=== PATIENT | female | born 1995 | race Caucasian/White ===

== ENCOUNTER 2017-11-22 18:22 | Emergency (ER) | payer BC ==
--- NOTE | 2017-11-22 18:36 | EDPHY ---
H & P Time Seen by Provider: 11/22/17 18:30 HPI/ROS: CHIEF COMPLAINT: Left 4th digit injury HISTORY OF PRESENT ILLNESS: 21-year-old female was walking her dog with lesion on when the dog ran after score all and her leash abruptly impacted her left 4th digit distal phalanx at the DIP joint. She is complaining of pain to the D IP and the distal phalanx. Occurred shortly prior to arrival. Pain reproducible with flexion extension. PHYSICAL EXAM (Prior to examination, patient consented to physical exam, hands were washed and my usual and customary physical exam procedures followed) 1) GENERAL: Well-developed, well-nourished, alert and oriented. Appears to be in no acute distress. 2) HEAD: Normocephalic 3) HEENT: sclera anicteric 4) LUNGS: Breathing comfortably. 5) SKIN: Intact. No signs of infection. The patient has gel type nail pitcairn islander in place partially covering nail bed. I am able to visualize a few areas without nail Senegalese coverage and there are no signs of subungual hematoma. 6) MUSCULOSKELETAL: Tender to palpation left 4th digit at the D IP joint. No visible or palpable abnormality. No visible signs of trauma. 7) NEUROLOGIC: Two-point discrimination intact. Smoking Status: Never smoked Constitutional: Initial Vital Signs Temperature (C) 37 C 11/22/17 18:24 Heart Rate 80 11/22/17 18:24 Respiratory Rate 20 11/22/17 18:24 Blood Pressure 115/84 H 11/22/17 18:24 O2 Sat (%) 98 11/22/17 18:24 O2 Delivery Mode Room Air Allergies/Adverse Reactions: No Known Allergies Allergy (Unverified 11/22/17 18:24) Home Medications: Medication Instructions Recorded Control 11/22/17 MDM/Departure - MDM Imaging Results: Xray of the left hand interpreted by myself: no definitive acute osseous abnormality Imaging: I viewed and interpreted images myself Procedures: Procedure: Splint An Aluminum finger cage splint was applied by ER breeder service technician. After application of the splint I returned and re-examined the patient. The splint was adequately immobilizing the joint and distal to the splint the patient's circulation and sensation were intact. Patient shows no signs of compartment syndrome. Was given orthopedic precautions. ED Course/Re-evaluation: The patient attempted to remove her nail pitc[place] islander however because it is a gel type nail pitc[place]n islander, and this type of nail Senegalese cannot be removed by traditional nail Senegalese remover in the ER. She has been informed the subungual hematoma is not ruled out. However, on the portions of the nail that are not fully covered by nail Senegalese I do not visualize subungual hematoma. X-ray was obtained which showed no definitive acute osseous abnormality. I am unable to adequately assess flexor extensor function of the DIP joint secondary to pain. She has been informed that non osseous injury is not ruled out. There is no evidence of open injury at this time. The area has been splinted and I recommended follow up with hand surgeon as she is left hand dominant especially. She is agreeable with this. Given this referral information. Care of patient under supervision of secondary supervising physician Dr Morgan . - Depart Disposition: Home, Routine, Self-Care Clinical Impression: Injury of left ring finger Qualifiers: Encounter type: initial encounter Qualified Code(s): S69.92XA - Unspecified injury of left wrist, hand and finger(s), initial encounter Condition: Good Instructions: Finger Sprain (ED) Additional Instructions: Return to the ER immediately if you experience discoloration, have worsening pain, numbness, tingling, or any other symptoms that concern you. If you received x-rays in the emergency department today, be advised, that ligamentous , tendon, muscular, and other non-bony injury cannot be fully ruled out. Try to keep your affected extremity elevated above the level of your chest, and keep cold packs on the affected area, for the next 48 hours. Referrals: Yaniv De La Cruz MD [Medical Doctor] - 2-3 days, call for appt. (Dr. Yaniv De La Cruz is a hand surgeon)
[2017-11-22 19:16] VITALS: BP 112/60; PULSE 78; RESP 14; TEMP 97.5; O2SAT 97
== END 2017-11-22 19:16 | disposition home or self-care (01) ==
DX: S69.92XA Unspecified injury of left wrist, hand and finger(s), initial encounter (principal); W22.8XXA Striking against or struck by other objects, initial encounter; Y99.8 Other external cause status; Y93.K1 Activity, walking an animal
CPT/HCPCS: L3925

== ENCOUNTER 2017-12-16 22:34 | Emergency (ER) | payer BC ==
--- NOTE | 2017-12-16 23:26 | EDPHY ---
H & P Stated Complaint: "I THINK I HAVE A BLOOD CLOT" L CALF, PRP SX L KNEE MON Time Seen by Provider: 12/16/17 23:22 HPI/ROS: HPI: This is a 22-year-old female who presents with Chief Complaint: "I THINK I HAVE A BLOOD CLOT" L CALF, PRP SX L KNEE MON Location: left calf Quality: Concern for blood clot Duration: 30 min prior to arrival Signs and Symptoms: No bleeding, no radiation, no numbness, no weakness, no tingling, no incontinence, no decreased range of motion, no swelling, + pain, no fever, + skin color changes Timing: Acute, resolved Severity: Mild Context: Patient reports that she had platelet rich plasma therapy on Thursday in her left knee. She has been basically sedentary for the last 2 days. She takes oral control pills. She reports that this evening she noted of strange superficial venous like structure in her left calf with accompanied pain. She reports that it has since resolved. Denies any calf pain or cramping. Denies skin color changes/shortness of breath/chest pain. Nonsmoker. No recent long distance travel. LMP 28 days ago. Modifying Factors: None Comment: ROS: see HPI Constitutional: No fever, no chills, no weight loss Eyes: No blurred vision Respiratory: No shortness of breath, no cough Cardiovascular: No chest pain Gastrointestinal: No nausea, no vomiting no diarrhea Genitourinary: No dysuria Extremities: No myalgias Neurologic: No weakness, no numbness Skin: No rashes Hematologic: No bruising, no bleeding MEDICAL/SURGICAL/SOCIAL HISTORY: Medical history: Generally healthy. Does not take any regular medications. Surgical history: Denies Social history: Student. CONSTITUTIONAL: Slightly anxious extremely well-appearing young adult white female, awake and alert, no obvious distress HEENT: Atraumatic and normocephalic. NECK: supple, no midline tenderness, flexion 45 degrees, extension 45 degrees, right and left lateral flexion 45 degrees. No meningismus. Cardiovascular: Normal S1/S2, regular rate, regular rhythm, without murmur rub or gallop. PULMONARY/CHEST: Symmetrical and nontender. no crepitus. Clear to auscultation bilaterally. Good air movement. No accessory muscle usage. ABDOMEN: Soft, nondistended, nontender, no ecchymosis. PELVIC: no pain with rocking; bilateral hips flexion 125 degrees, extension 30 degrees, with no pain internal rotation and no pain external rotation. BACK: No midline tenderness, no paraspinous spasm, deep tendon reflexes 2/2, no pain with straight leg raise, No foot drop. Achilles reflexes are equal bilaterally. Able to walk on heels and toes without difficulty. EXTREMITIES: 2/2 pulses, strength 5/5, left KNEE: no effusion, medial and lateral joint line tenderness, full extension to 180, flexion to 120. No pain with varus and valgus exam. No pain with anterior drawer or posterior drawer test. DIP/PIP/MCP flexion/extension intact with good light touch sensation. no deformities, no clubbing, no cyanosis or edema. No varicose veins. No palpable cords. NEUROLOGICAL: no focal neuro deficits. GCS 15. Light touch sensation intact. SKIN: Warm and dry, no erythema. no rash. Good capillary refill. Source: Patient, Family (Father) Exam Limitations: No limitations - Personal History LMP (Females 10-55): Over 28 Days Ago Current Tetanus Diphtheria and Acellular Pertussis (TDAP): Yes Tetanus Vaccine Date: 2012 - Medical/Surgical History Hx Asthma: No Hx Chronic Respiratory Disease: No Hx Diabetes: No Hx Cardiac Disease: No Hx Renal Disease: No Hx Cirrhosis: No Hx Alcoholism: No Hx HIV/AIDS: No Hx Splenectomy or Spleen Trauma: No Other PMH: PRP SX 12/14/2017 - Social History Smoking Status: Never smoked Constitutional: Initial Vital Signs Temperature (C) 36.6 C 12/16/17 22:39 Heart Rate 87 12/16/17 22:39 Respiratory Rate 16 12/16/17 22:39 Blood Pressure 140/95 H 12/16/17 22:39 O2 Sat (%) 96 12/16/17 22:39 O2 Delivery Mode Room Air Allergies/Adverse Reactions: No Known Allergies Allergy (Verified 12/16/17 22:38) Home Medications: Medication Instructions Recorded Control 11/22/17 Medical Decision Making - Diagnostics Imaging Results: Imaging Impressions Extremity Venous Study 12/16/17 23:26 Impression: No deep venous thrombosis left leg. ED Course/Re-evaluation: Vital signs reviewed upon arrival in stable. Left lower extremity ultrasound ordered to evaluate for DVT. No signs of neurovascular compromise/tenting of skin/compartment syndrome/ extremities and joints examined above and below area of concern and are neurovascularly intact/cellulitis/peripheral vascular disease/thrombophlebitis/ septic arthritis. 2356: Called by radiologist who advised that radiologist states no superficial or deep venous thrombosis. Reassurance provided to patient. This patient was seen under the supervision of my secondary supervising physician. I evaluated care for this patient independently. Differential Diagnosis: Leg swelling including but not limited to hypoalbuminemia, congestive heart failure, cor pulmonale, chronic venous stasis and DVT. Departure - Departure Disposition: Home, Routine, Self-Care Clinical Impression: Status post left knee surgery, Vein symptom Condition: Good Instructions: Leg Edema (ED) Additional Instructions: Ultrasound today does not show any signs of superficial or deep blood clots. Return to the ER immediately if you experience new or worsening pain, discoloration, numbness, tingling, or any other symptoms that concern you. Referrals: PCP Not In,Dictionary [Medical Doctor] - As per Instructions
[2017-12-17 00:08] VITALS: BP 103/75
== END 2017-12-17 00:10 | disposition home or self-care (01) ==
DX: M79.662 Pain in left lower leg (principal); Z98.890 Other specified postprocedural states

== ENCOUNTER 2018-06-21 19:15 | Observation (INO) | payer BC ==
[2018-06-21] MEDS ORDERED: NS 1,000 ML IV ONE (19:54)
[2018-06-21] MEDS ORDERED: KETOROLAC 30 MG/1 ML SDV IVP ONE (19:54)
--- NOTE | 2018-06-21 19:56 | EDPHY ---
HPI/HX/ROS/PE/MDM - Data Points Imaging: Discussed imaging studies w/ train caller Radiologist Narrative: CHIEF COMPLAINT: "I'm in so much pain" HPI: The patient is a 22 y/o female arriving with her mother complaining of severe lower abdominal pain that began at 05:00 this morning while flying here from [place]. Upon landing, she went to [facility] ED and was there for several hours. She says, "they thought colitis and they tested for appendicitis and ovarian cyst" with abdominal CT, abdominal US, UA, and lab work that were all normal per discharge paperwork she brought with her. She received morphine with minimal improvement and then Toradol with short term improvement. She was discharged with Zofran and loperamide for symptoms. Her pain "came right back" within two hours of returning home. She says it "feels like someone constantly stabbing you but it never dips, it never leaves, and then it spikes." Her pain is worst in her lower abdomen, but hurts throughout her abdomen. She also had mild cold symptoms Thursday and Thursday and some diarrhea yesterday. She vomited a couple times earlier this morning. She notes she had the same pain once previously in [place] in February, 3 months ago, and it was associated with near constant vomiting that time. She was treated for food poisoning, though she does not believe that was the cause of her symptoms. She denies dysuria. Per [facility] records: CT abdomen impression: "The appendix appears normal where visualized. There is trace inflammation along and mild thickening of the posterior aspect of the cecum, which abuts the right ovary and could be reactive." Pelvic US impression: "Normal pelvic ultrasound." REVIEW OF SYSTEMS: A comprehensive 10 system review of systems is otherwise negative aside from elements mentioned in the history of present illness. PMH: Prior episode of abdominal pain. SOCIAL HISTORY: Mother at bedside. Lives in [place]. [employer] student. PHYSICAL EXAM: General:Patient is alert, tearful, rocking back and forth while sitting on bed. ENT:Eyes are normal to inspection. ENT inspection normal. Neck: Normal inspection. Full range of motion. Respiratory:No respiratory distress. Breath sounds normal bilaterally. Cardiovascular: Regular rate and rhythm. Strong peripheral pulses. Normal cap refill. Abdomen: Lower abdominal tenderness to palpation. There are no peritoneal signs. Back: Normal to inspection. No tenderness to palpation. Skin: Normal color. No rash. Warm and dry. Extremities: Normal appearance. Full range of motion. Neuro: Oriented x3. Normal motor function. Normal sensory function. (Davi Metz) ED Course: Dr. Sal saw the patient in the emergency department and plans to admit the patient for observation for possible appendicitis. I have ordered the patient a hospital bed. (Rebecca Wright) This is a normally healthy 22 y/o female who presents with a several hour history of severe lower abdominal pain and nausea. She was already evaluated for these symptoms at [facility] earlier today with abdominal CT, abdominal US, labs, and UA that were all negative. Toradol seemed to help her pain temporarily and she would like to try that again here. Due to a recent negative CT a few hours ago, I do not recommend repeating this test due to radiation exposure. Plan for IV, labs, repeat pelvic US, and symptomatic management. 15mg IV Toradol, 20mg PO Bentyl, and 1L IV NS ordered. WBC elevated at 15.31. Pelvic US is negative. 2130: Reassessed patient. She is currently sleeping. Reassessed patient and discussed work up thus far. They would like to consult with the surgeon before making decision on discharge due to concern for pain recurrence at home. Dr. Sal consulted. (Davi Metz) - Data Points Imaging Results: Imaging Impressions Pelvic/Renal Ultrasound 06/21/18 19:55 Impression: Normal exam. Findings were discussed with Davi Metz MD at 20:53, on 06/21/2018. Laboratory Results: Laboratory Results 06/21/18 20:15 06/21/18 20:15 06/21/18 06/21/18 06/21/18 20:15 20:15 20:15 WBC 15.31 10^3/uL H 10^3/uL (3.80-9.50) RBC 4.73 10^6/uL 10^6/uL (4.18-5.33) Hgb 14.0 g/dL g/dL (12.6-16.3) Hct 39.6 % % (38.0-47.0) MCV 83.7 fL fL (81.5-99.8) MCH 29.6 pg pg (27.9-34.1) MCHC 35.4 g/dL g/dL (32.4-36.7) RDW 12.4 % % (11.5-15.2) Plt Count 240 10^3/uL 10^3/uL (150-400) MPV 11.1 fL fL (8.7-11.7) Neut % (Auto) 78.0 % H % (39.3-74.2) Lymph % (Auto) 14.4 % L % (15.0-45.0) Sherman % (Auto) 7.1 % % (4.5-13.0) Eos % (Auto) 0.1 % L % (0.6-7.6) Baso % (Auto) 0.2 % L % (0.3-1.7) Nucleat RBC Rel Count 0.0 % % (0.0-0.2) Absolute Neuts (auto) 11.94 10^3/uL H 10^3/uL (1.70-6.50) Absolute Lymphs (auto) 2.20 10^3/uL 10^3/uL (1.00-3.00) Absolute Monos (auto) 1.09 10^3/uL H 10^3/uL (0.30-0.80) Absolute Eos (auto) 0.02 10^3/uL L 10^3/uL (0.03-0.40) Absolute Basos (auto) 0.03 10^3/uL 10^3/uL (0.02-0.10) Absolute Nucleated RBC 0.00 10^3/uL 10^3/uL (0-0.01) Immature Gran % 0.2 % % (0.0-1.1) Immature Gran # 0.03 10^3/uL 10^3/uL (0.00-0.10) Sodium 137 mEq/L mEq/L (135-145) Potassium 4.0 mEq/L mEq/L (3.3-5.0) Chloride 106 mEq/L mEq/L (97-110) Carbon Dioxide 21 mEq/l L mEq/l (22-31) Anion Gap 10 mEq/L mEq/L (6-14) BUN 7 mg/dL mg/dL (7-23) Creatinine 0.7 mg/dL mg/dL (0.6-1.0) Estimated GFR > 60 Glucose 107 mg/dL H mg/dL (70-100) Calcium 9.6 mg/dL mg/dL (8.5-10.4) Beta HCG, Qual NEGATIVE Medications Given: Dicyclomine HCl (Bentyl) 20 mg PO Q6 PRN PRN Reason: ABDOMINAL MODERATE PAIN Stop: 12/19/18 01:59 Last Admin: 06/22/18 02:39 Dose: 20 mg Lactated Ringer's (Lr) 1,000 mls @ 100 mls/hr IV CONT FELA Stop: 12/19/18 01:59 Last Admin: 06/22/18 02:38 Dose: 1,000 mls Discontinued Medications Dicyclomine HCl (Bentyl) 20 mg PO EDNOW ONE Stop: 06/21/18 20:32 Last Admin: 06/21/18 20:52 Dose: 20 mg Sodium Chloride (Ns) 1,000 mls @ 0 mls/hr IV EDNOW ONE; Wide Open PRN Reason: Protocol Stop: 06/21/18 19:55 Last Admin: 06/21/18 20:17 Dose: 1,000 mls Ketorolac Tromethamine (Toradol) 15 mg IVP EDNOW ONE Stop: 06/21/18 19:55 Last Admin: 06/21/18 20:16 Dose: 15 mg Ketorolac Tromethamine (Toradol) 30 mg IVP ONCE ONE Stop: 06/22/18 02:01 Last Admin: 06/22/18 02:38 Dose: 30 mg General Time Seen by Provider: 06/21/18 19:30 Initial Vital Signs: Initial Vital Signs Temperature (C) 37.1 C 06/21/18 19:20 Heart Rate 82 06/21/18 19:20 Respiratory Rate 17 06/21/18 19:20 Blood Pressure 132/82 H 06/21/18 19:20 O2 Sat (%) 98 06/21/18 19:20 O2 Delivery Mode Room Air Allergies/Adverse Reactions: No Known Allergies Allergy (Verified 06/24/18 07:02) Home Medications: Medication Instructions Recorded Ethinyl Estradiol/Drospirenone 1 each PO DAILY 11/22/17 [Loryna 3 mg-0.02 mg Tablet] Ibuprofen [Motrin (*)] 600 mg PO Q6H #30 tab 06/23/18 oxyCODONE/APAP 5/325 [Percocet 1 - 2 tab PO Q4 PRN #30 tab 06/23/18 5/325 (*)] Departure - Departure Disposition: Home, Routine, Self-Care Clinical Impression: Abdominal pain Qualifiers: Abdominal location: generalized Qualified Code(s): R10.84 - Generalized abdominal pain Condition: Good Report Scribed for: Davi Metz Report Scribed by: Vivian Moreira Date of Report: 06/21/18 Time of Report: 20:09 Physician Review and Approval Statement: Portions of this note were transcribed by an ED scribe. I personally performed the history, physical exam, and medical decision making; and confirm the accuracy of the information in the transcribed note.
[2018-06-21 20:28] LABS: PLATELET COUNT 240 10^3/uL (150-400)
[2018-06-21] MEDS ORDERED: DICYCLOMINE 10 MG CAP PO ONE (20:31)
[2018-06-22] MEDS ORDERED: HYDROmorphONE/DILAUDID 1 MG/ML INJ IVP PRN ×2 (02:00→20:06)
[2018-06-22] MEDS ORDERED: DICYCLOMINE 20 MG TAB PO PRN (02:00)
[2018-06-22] MEDS ORDERED: KETOROLAC 30 MG/1 ML SDV IVP ONE (02:00)
[2018-06-22] MEDS: LR 1,000 ML IV SCH ×2 (02:38→12:03)
[2018-06-22 04:46] LABS: PLATELET COUNT 194 10^3/uL (150-400)
[2018-06-22] MEDS: KETOROLAC 15 MG/1 ML SDV IVP PRN ×3 (09:02→22:57)
--- NOTE | 2018-06-22 10:28 | SOAPPROG ---
SOAP Progress Note Assessment/Plan: Assessment/Plan: 22 Y F admitted with persistent severe lower abdominal pain. URI over weekend, episode of diarrhea and vomiting. Seen [facility] before admit here. Seen and examined with Dr. aSl earlier this am. Per reports, CT at outside hospital without sign of appendicitis or other problem and pelvic US here was normal. Abdominal pain improved c bentyl last night. can filling and closing machine tender this am with persistent white count which is concerning. Continue observation, but may need exploratory surgery if pain persists. Continue NPO. No VTE ppx in case of need for OR. S: if still then no pain, +pain when moving around. bentyl helped, but mostly bc it let her sleep. O: sleeping but easily arousable and cooperative no wob abd soft, +hypogastric abdominal tenderness c some guarding 06/22/18 10:28 Objective: Vital Signs Temp Pulse Resp BP Pulse Ox 36.8 C 93 16 105/74 95 06/22/18 05:08 06/22/18 08:34 06/22/18 05:08 06/22/18 08:34 06/22/18 08:34 Laboratory Results 06/22/18 04:20 06/21/18 06/22/18 06/23/18 05:59 05:59 05:59 Intake Total 1400 Balance 1400 ICD10 Worksheet Patient Problems: Problems Problem Status Onset Abdominal pain Acute
--- NOTE | 2018-06-22 13:18 | ASMTCMCOM ---
CM Note CM Note Notes: Chart reviewed. 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 Currently obs status for possible exploratory lap surgery if pain persists. Likely no needs when medically cleared for discharge. Plan: Home no needs. Date Signed: 06/22/2018 01:17 PM Electronically Signed By:Samantha Santana RN
[2018-06-22] MEDS ORDERED: MIDAZOLAM 2 MG/2 ML VIAL IVP ONE ×2 (15:17→18:48)
--- NOTE | 2018-06-22 15:17 | PDANEPAE ---
ANE History of Present Illness exploratory laparoscopy ANE Past Medical History - Pulmonary History Hx Oxygen in Use at Home: No Hx Sleep Apnea: No Sleep Apnea Screening Result - Last Documented: Negative - Endocrine History Hx Diabetes: No - Chronic Pain History Chronic Pain: No ANE Review of Systems Review of systems is: negative Review of Systems: - Exercise capacity Exercise capacity: >=4 METS ANE Patient History - Allergies Allergies/Adverse Reactions: No Known Allergies Allergy (Verified 12/16/17 22:38) - Home Medications Home medications: home medication list seen and reviewed Home Medications: Ethinyl Estradiol/Drospirenone [Loryna 3 mg-0.02 mg Tablet] 1 each PO DAILY 09/10 [Last Taken 06/20/18] - NPO status NPO Status: no food or drink >8 hours - Anes Hx Anes Hx: no prior problems - Smoking Hx Smoking Status: Never smoked - Family Anes Hx Family Anes Hx: none ANE Labs/Vital Signs - Labs Result Diagrams: 06/22/18 04:20 06/21/18 20:15 - Vital Signs Vital Signs: reviewed preoperatively; see RN documention for details Blood Pressure: 99/62 Heart Rate: 112 Respiratory Rate: 16 O2 Sat (%): 97 Height: 165.1 cm Weight: 63.503 kg ANE Physical Exam - Airway Neck exam: FROM Mallampati Score: Class 2 Mouth exam: normal dental/mouth exam - Pulmonary Pulmonary: no respiratory distress - Cardiovascular Cardiovascular: regular rate and rhythym - ASA Status ASA Status: II, E ANE Anesthesia Plan Anesthesia Plan: general endotracheal anesthesia (RSI)
--- NOTE | 2018-06-22 15:42 | GCON ---
REFERRING PHYSICIAN: NIECY Garcia REASON FOR CONSULTATION: Abdominal pain. Dear Ria Price: Thank you very kindly for asking me to evaluate the patient in consultation for a chief complaint of abdominal pain. She is a pleasant 22-year-old female without significant past medical history, who developed a rather abrupt onset of abdominal symptoms while flying home from [place] on Thursday. She was vacationing at [employer] The travel was uneventful. She first noticed the onset of periumbilical and lower abdominal discomfort while in the airport. This was associated with nausea. She said it felt kind of like a hunger pain and ate a pop tart, but this made her feel really sick, and she threw up. She had of a small amount of stool that day, which was pebble like. There was no blood or hematochezia. Her pain escalated, and when she arrived back home, she was seen in the emergency room at the [facility]. It sounds like laboratories there revealed an elevated white count, and a CT scan was somewhat unremarkable for the cause of symptoms. She was sent home, but when the pain worsened, she was readmitted to [facility]. Her white count remains elevated at 15.3 yesterday and 14.1 today. The plan was for a possible laparoscopy to help with her diagnosis. Of note, she had a transabdominal pelvic ultrasound today, which was also normal. I am asked to assist with further evaluation and management. PAST MEDICAL HISTORY: Significant for a food-borne illness while traveling in [facility] last January. This was manifested by nausea, vomiting, and diarrhea that lasted 24 hours. Of note, she has also had a longstanding history of childhood constipation that was somewhat difficult to control. PAST SURGICAL HISTORY: None. SOCIAL HISTORY: The patient is a colette at . No tobacco. No alcohol. No substance abuse. MEDICATIONS: Occasional Advil. ALLERGIES: None. FAMILY HISTORY: Significant for a grandmother with some "bowel problems." Nobody with Crohn disease, celiac disease, ulcerative colitis or irritable bowel syndrome. REVIEW OF SYSTEMS: CONSTITUTIONAL: She has had subjective fever. No chills. No night sweats. No weight loss. HEENT: She did report a headache on Thursday, for which she took Advil. No other recent headache, and her headache is currently gone. No visual disturbances. No rhinorrhea. No epistaxis. No ear pain. No swallowing difficulties. PULMONARY: No cough or shortness of breath. CARDIOVASCULAR: No chest pain or palpitations. Denies syncope. GI: She has been nauseous with 1 episode of bilious vomiting and also food (threw up her pop tart). Her abdominal pain is generalized but seems to be more lower , periumbilical and right sided. GENITOURINARY: She denies dysuria, hematuria , or flank pain. GYNECOLOGIC: Denies dyspareunia, vaginal bleeding, vaginal discharge. She denies ever having an abnormal pelvic exam. RHEUMATOLOGIC: No joint pain. DERMATOLOGIC: No rash, jaundice or hives. ENDOCRINE: No heat or cold intolerance. PSYCHIATRIC: No depression, anxiety. No history of mental health illness. PHYSICAL EXAM: VITAL SIGNS: Blood pressure 102/69. Heart rate is 92. Temperature is 37.9, is the T-max. Oxygenation is 96% on room air. GENERAL: Comfortable-appearing female in no acute distress. She is initially in the wheelchair on the patio outside with her mom. We had wheeled her back into the room. She was able to ambulate from the wheelchair to the bed without difficulty or obvious pain. HEENT: Normocephalic, atraumatic. Oropharynx clear. Sclerae anicteric. NECK: Supple. No palatal petechiae. No jugular venous distention. No thyromegaly. No exudate or oral thrush. PULMONARY: Clear to auscultation bilaterally. CARDIOVASCULAR: Regular rate and rhythm without murmur, rub, or gallop. GI: The abdomen is tender to palpation in the right lower quadrant. No rebound. No guarding. Bowel sounds are hypoactive. There is no distention, no abdominal bruit, no organomegaly, no herniation. I do not appreciate palpably a mass in the abdomen. EXTREMITIES: No cyanosis, clubbing, edema, or palmar erythema. No joint deformity, swelling or warmth. DERMATOLOGIC: No jaundice or rash. NEURO: Alert to person, place, and time. Cranial nerves normal. Motor nonfocal. Gait is non-ataxic. DATABASE: Includes the following: Today, white blood count 14.1, hematocrit 36.5, platelets are 194. Sodium 137, potassium 4.0, chloride 106, bicarbonate 21, BUN 7, creatinine 0.7, glucose 107. Beta hCG negative. Calcium 9.6. IMAGING: Includes a transabdominal and pelvic ultrasound, which is normal. She has had a CT scan of the abdomen and pelvis performed at the [facility] emergency room, the results of which are dictated in the ER note and also in Ria Price's progress note, as appendix appears normal. There is trace inflammation and mild thickening along the posterior aspect of the cecum, which abuts the right ovary and could be reactive. Otherwise, it is reportedly normal. IMPRESSION: 1. Right lower quadrant abdominal pain. 2. CT scan with some trace inflammation and thickening along the posterior aspect of the cecum. 3. Nausea with 1 episode of vomiting. 4. Leukocytosis. 5. Low-grade fever. RECOMMENDATIONS: 1. I will discuss with Surgery the plan for laparoscopy. This may be the best test to evaluate her symptoms and make a diagnosis. While the appendix is visualized and radiographically normal, the finding of inflammation along the cecum is unclear. 2. This inflammatory cecal process could be infectious. I am not opposed to adding antibiotics empirically to her management and continue IV fluids, clear liquids, and observation. 3. If she does well and does not need an urgent laparoscopy, according to Surgery's input, then an upper endoscopy and colonoscopy to evaluate her vomiting, abdominal pain and cecal inflammation can be arranged. 4. Further recommendations to follow. Surgery will re-evaluate this evening. 5. If an observational strategy is chosen and she continues to have pain, elevated WBC and fever then repeat CT imaging should be done to help with decision making. /[id number]/MODL MTDD
[2018-06-22] MEDS ORDERED: LR 1,000 ML IV ONE (16:11)
[2018-06-22] MEDS ORDERED: HYDROmorphONE/DILAUDID 2 MG/ML INJ ONE (16:40)
[2018-06-22] MEDS ORDERED: ceFAZolin 2 GM/DEXTROSE 100 ML IV ONE (16:44)
--- NOTE | 2018-06-22 16:55 | PDGENHP ---
History & Physical Chief Complaint: RLQ PAIN History of Present Illness: 22 FEMALE WITH PERSISTENT RLQ TENDERNESS WITH ELEVATED WBC AND LOW GRADE FEVER. NO MAJOR DIARHEA OR EMESIS. 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 PARTICULARLY NO VAG DISCHARGE. CT AND US NONDIAGNOSTIC AT ANOTHER ER BUT FILMS NOT AVAILABLE. PAIN MUCH WORSE WITH MOVEMENT. LMP MARCH Pertinent Past, Social, Family History: PMH: WISDOM TEETH/ NO OTHER SURGERIES OR MED ISSUES. NKA. MEDS CONTROL IMPLANT. ROS - 10 PT REVIEW. FAM HX FACTOR V LEIDEN. SOC: NONSMOKER Relevant Physical Exam: GEN: AFEBRILE, HEALTHY. HEENT: NONICTERIC, NO ORAL LESIONS, NO NODES. NECK SUPPLE. CHEST CLEAR AND SYMMETRIC. COR RR. ABD SOFT , VERY TENDER RLQ WITH REBOUND AND GUARDING, + BS. EXTREM OK. BACK NONTENDER. NEURO PHYSIOLOGIC. PSYCH OK Cardiorespiratory Assessment: IMP: POSSIBLE APPE DESPITE NONDIAGNOSTIC CT. PLAN ADMIT FOR OBS/ GI CONSULT/ ? FOLLOWUP IMAGING
[2018-06-22] MEDS ORDERED: HYDROmorphONE/DILAUDID 2 MG/ML INJ IVP ONE (17:00)
--- NOTE | 2018-06-22 17:03 | SOAPPROG ---
URSZULA Progress Note Assessment/Plan: Assessment: STILL VERY TENDER/ WBC 14K/ TEMP 101.3 RISKS AND OPTIONS FULLY DISCUSSED INCLUDING OBS ON ABX SHE WISHES TO PROCEED WITH LAPAROSCOPY Plan:POSSIBLE LAP APPE 06/22/18 17:01 Objective: Vital Signs Temp Pulse Resp BP Pulse Ox 38.6 C H 112 H 16 99/62 L 97 06/22/18 16:19 06/22/18 16:21 06/22/18 16:21 06/22/18 16:21 06/22/18 16:21 Laboratory Results 06/22/18 04:20 06/21/18 06/22/18 06/23/18 05:59 05:59 05:59 Intake Total 1400 Balance 1400 ICD10 Worksheet Patient Problems: Problems Problem Status Onset Abdominal pain Acute
[2018-06-22] MEDS ORDERED: BUPIVACAINE 0.5% 30 ML SDV ONE (18:25)
[2018-06-22] MEDS ORDERED: ceFAZolin 1 GM/5 ML SYR ONE (18:26)
[2018-06-22] MEDS ORDERED: HEPARIN 1000 UNIT/1 ML MDV ONE (18:26)
[2018-06-22] MEDS ORDERED: PROPOFOL 200 MG/20 ML VIAL ONE (18:29)
[2018-06-22] MEDS ORDERED: fentaNYL 100 MCG/2 ML INJ ONE ×2 (18:29)
[2018-06-22] MEDS ORDERED: ROCURONIUM 50 MG/5 ML VIAL ONE (18:32)
[2018-06-22] MEDS ORDERED: LIDOCAINE 2% 5 ML SDV ONE (18:32)
[2018-06-22] MEDS ORDERED: ONDANSETRON 4 MG/2 ML VIAL ONE (18:33)
[2018-06-22] MEDS ORDERED: DEXAMETHASONE 4 MG/ML VIAL ONE (18:33)
[2018-06-22] MEDS ORDERED: MIDAZOLAM 2 MG/2 ML VIAL ONE (18:50)
--- NOTE | 2018-06-22 18:51 | POSTANESTH ---
Post Anesthetic Evaluation Cardiovascular Status: Normal, Stable Respiratory Status: Normal, Stable Level of Consciousness/Mental Status: Can Participate in Eval Pain Control: Adequate, Prn Tx Ordered Nausea/Vomiting Control: Adequate, Prn Tx Ordered Complications Possibly Related to Anesthesia: None Noted
[2018-06-22] MEDS ORDERED: SUCCINYLCHOLINE CHLORIDE 200 MG/10 ML SYR IVP ONE (19:01)
[2018-06-22] MEDS ORDERED: SUGAMMADEX SODIUM 200 MG/2 ML VIAL IVP ONE (19:37)
--- NOTE | 2018-06-22 20:05 | POSTOPPROG ---
Post Op Note Date of Operation: 06/22/18 Surgeon: Asher Sal Anesthesiologist: LYNN Anesthesia: GET(General Endotracheal) Pre-op Diagnosis: APPENDICITIS Post-op Diagnosis: SAME Indication: RETROCECAL,SUBACUTE APPENDICITIS Procedure: LAP APPE Findings: MARKEDLY SUBACUTELY INFLAMED CHRONIC APPENDICITIS Inf/Abcess present in the surg proc area at time of surgery?: Yes Depth: Organ Space EBL: Minimal Complications: 0 Specimen(s): APPENDIX
[2018-06-22] MEDS ORDERED: ONDANSETRON 4 MG/2 ML VIAL IVP PRN (20:06)
[2018-06-22] MEDS: D5W 1/2 NS W/ 20 KCl/L 1,000 ML IV SCH (21:31)
[2018-06-23] MEDS: cefOXitin SODIUM 2 GM in NS 100 ML IV SCH ×3 (00:07→14:01)
[2018-06-23] MEDS: OXYCODONE/APAP 5/325 TAB PO PRN ×2 (06:25→11:56)
[2018-06-23] MEDS: D5W 1/2 NS W/ 20 KCl/L 1,000 ML IV SCH (06:28)
[2018-06-23] MEDS ORDERED: ETHINYL ESTRADIOL PO SCH (09:00)
[2018-06-23] MEDS ORDERED: DROSPIRENONE PO SCH (09:00)
[2018-06-23] MEDS ORDERED: ENOXAPARIN 40 MG/0.4 ML SYR SC SCH (09:00)
--- NOTE | 2018-06-23 10:14 | SOAPPROG ---
SOAP Progress Note Assessment/Plan: Assessment/Plan: 22 Y F admitted with persistent severe lower abdominal pain. URI over weekend, episode of diarrhea and vomiting. Seen [facility] before admit here. now s/p ex-laparoscopy with appendectomy for subacute/ chronic retrocecal appendicitis. POD#1 Overall doing well. Advance diet. Transition to PP pain pills. Continue IV abx while in house. Possibly home later today vs in am pending course. S: has pain--mostly RLQ and not incisional. passing gas. no nausea. no sweats or chills. O: sleeping but easily arousable and cooperative no wob rrr abd soft, inc cdi, +BS 06/23/18 10:11 Objective: Vital Signs Temp Pulse Resp BP Pulse Ox 36.7 C 67 16 93/54 L 97 06/23/18 08:02 06/23/18 08:02 06/23/18 08:02 06/23/18 08:02 06/23/18 08:02 Laboratory Results 06/22/18 04:20 06/22/18 06/23/18 06/24/18 05:59 05:59 05:59 Intake Total 1400 1900 675 Output Total 5 Balance 1400 1895 675 ICD10 Worksheet Patient Problems: Problems Problem Status Onset Abdominal pain Acute
[2018-06-23] MEDS: KETOROLAC 15 MG/1 ML SDV IVP PRN (11:57)
[2018-06-23 13:27] VITALS: BP 104/69
--- NOTE | 2018-06-23 13:32 | ASMTLACE ---
JESS Length of stay for Answers: 1 day current admission # of Emergency department Answers: 3-4 visits in the last 6 months Score: 4 Date Signed: 06/23/2018 01:31 PM Electronically Signed By:Samantha Santana RN
--- NOTE | 2018-06-23 13:35 | ASMTCMCOM ---
CM Note CM Note Notes: Medically cleared per surgery for discharge to home. No identified needs. CM available should needs arise. Plan: Dc to home no needs, Date Signed: 06/23/2018 01:34 PM Electronically Signed By:Samantha Santana RN
--- NOTE | 2018-06-29 06:33 | GOP ---
DATE OF OPERATION: 06/22/2018 SURGEON: Asher Sal MD PREOPERATIVE DIAGNOSIS: Acute appendicitis. POSTOPERATIVE DIAGNOSIS: Chronic retrocecal appendicitis. PROCEDURE PERFORMED: Appendectomy. FINDINGS: The patient was found to have a markedly thickened appendix which was stuck in a retroceca l retroperitoneal position requiring a significant tedious dissection. ESTIMATED BLOOD LOSS: Negligible. She was taken to the recovery room in good condition. DESCRIPTION OF PROCEDURE: Patient was brought to the operating room where she received satisfactory general endotracheal anesthesia. She was placed in the supine position, prepped and draped in the [facility] sterile fashion. A periumbilical incision was made. A Veress needle was inserted. Pneumoperitoneum was established. Trocar was introduced. Laparoscope introduced. Good visualization was obtained. Two other trocars were placed in the lower abdomen under direct vision. The cecum was rotated medially. The appendix was seen to be markedly fused to the cecum and inflamed in the retrocecal retroperitoneal position. The peritoneal reflection was divided with the Harmonic Scalpel. The appendix was freed up as much as possible. The base was then skeletonized and divided with a stapler, and then the mesoappendix an d the appendix were mobilized in a retrograde fashion with the Harmonic Scalpel with care to avoid in jury to the cecum. The appendix was eventually completely freed and placed in a specimen bag and ext racted through the upper midline port site. Wound was irrigated. Hemostasis was assured. There was no contamination. Trocars removed under direct vision. Trocar sites were closed with 0 Vicryl for the fascia, 4-0 Monocryl subcuticular stitch for the skin, and all layers infiltrated with 0.5% Marcaine. /[id number]/MODL
--- NOTE | 2018-06-30 09:50 | GDS ---
DISCHARGE DIAGNOSIS: Chronic retrocecal appendicitis. PROCEDURES: Laparoscopic appendectomy. INTRAOPERATIVE FINDINGS: Patient was found to have a markedly-thickened appendix which was stuck in a retrocecal retroperitoneal position requiring a significant tedious dissection. SPECIAL TESTS: Pelvic and renal ultrasound was normal. Please see report for details. Other tests reports from CT scan at outside hospital from just prior to admission at [facility] were reviewed and showed no signs of acute appendicitis. Images were not available. HOSPITAL COURSE: The patient is a 22-year-old female who was admitted to the hospital with recurrent right lower quadrant abdominal pain. She was seen at an emergency department in [place] earlier for this. Reports were negative for acute appendicitis. Her pain was controlled with pain medicines at the time, but it returned so she reported to our emergency department. She was admitted for [facility]. A pelvic and renal ultrasound was negative for any uterus or adnexal abnormalities. She had an elevated white blood cell count with fever on admission. Ultimately, her pain did not improve and s o we recommended surgical exploration. The patient requested a GI consult prior to this. They promp tly consulted and agreed with surgical exploration. Please see their consultations for details. Ultimately, the patient was brought to the operating room and underwent laparoscopic appendectomy francesco Sal. She was found to have a chronically-inflamed retrocecal appendicitis. The procedure wa s uncomplicated, and she tolerated it well. The patient's postoperative course was relatively uneventful. Her pain was controlled and her diet w as advanced. She was discharged on postoperative day 1 to home in stable condition with her mom with plans for outpatient followup. /[id number]/MODL
== END 2018-06-23 17:00 | disposition home or self-care (01) ==
LOC: F1N 06-22 01:39
PROVIDERS: ADMIT Surgery; ATTEND Surgery
PROC: 0DTJ4ZZ Resection of Appendix, Percutaneous Endoscopic Approach (ICD-10-PCS; principal; 2018-06-21)
DX: K36 Other appendicitis (principal); E86.9 Volume depletion, unspecified; Z83.2 Family history of diseases of the blood and blood-forming organs and certain disorders involving the immune mechanism
CPT/HCPCS: 44970; 76856; 96361; 96372; 96374; 96375; 96376; 99285; G0378; J0330; J0690; J0694; J1100; J1170; J1650; J1885; J2250; J2405; J2704; J3010

== ENCOUNTER 2018-06-24 06:44 | Emergency (ER) | payer BC ==
[2018-06-24 07:02] VITALS: BP 103/77
--- NOTE | 2018-06-24 07:16 | EDPHY ---
H & P Time Seen by Provider: 06/24/18 06:57 HPI/ROS: CHIEF COMPLAINT: Abdominal pain, sore throat HISTORY OF PRESENT ILLNESS: The patient is a 22-year-old female who underwent appendectomy on Thursday by Dr. Carter Sal. She was discharged on Thursday. During the night she has had some pain under her right arm. She has also complained of a mild sore throat. She has mild discomfort at the top incision site. There has been no discharge or drainage. No surrounding redness. She has had normal bowel movements. No dysuria frequency. No fevers or chills. No nausea or vomiting. REVIEW OF SYSTEMS: 10 systems were reveiwed and are negative with the exception of the elements mentioned in the history of present illness. Past Medical/Surgical History: Includes appendectomy Smoking Status: Never smoked Physical Exam: Vitals noted. Afebrile GENERAL: Well-appearing, in no acute distress, alert. HEENT: Eyes normal to inspection, normal pharynx, no signs of dehydration. NECK: Normal, supple. No lymphadenopathy RESPIRATORY: Clear to auscultation bilaterally, no rales, rhonchi or wheezing. CVS: Regular rate and rhythm, no rubs, murmurs, or gallops. ABDOMEN: Soft, nondistended, no organomegaly. Patient's 3 incision sites appear to be healing well. There intact. There is no discharge. There is no surrounding warmth or erythema. No palpable mass. There is small area of bruising on the upper incision site. BACK: Normal to inspection, no CVA tenderness. SKIN: Normal color, no rash, warm, dry. No pallor. EXTREMITIES: No axillary lymph nodes. The right axilla appears normal with no tenderness palpation. No palpable mass. No pedal edema, no joint swelling. NEURO/PSYCH: Alert and oriented, normal mood and affect Constitutional: Initial Vital Signs Temperature (C) 36.8 C 06/24/18 06:50 Heart Rate 70 06/24/18 06:50 Respiratory Rate 16 06/24/18 06:50 Blood Pressure 103/77 06/24/18 06:50 O2 Sat (%) 99 06/24/18 06:50 O2 Delivery Mode Room Air Allergies/Adverse Reactions: No Known Allergies Allergy (Verified 06/24/18 07:02) Home Medications: Medication Instructions Recorded Ethinyl Estradiol/Drospirenone 1 each PO DAILY 11/22/17 [Loryna 3 mg-0.02 mg Tablet] Ibuprofen [Motrin (*)] 600 mg PO Q6H #30 tab 06/23/18 oxyCODONE/APAP 5/325 [Percocet 1 - 2 tab PO Q4 PRN #30 tab 06/23/18 5/325 (*)] Medical Decision Making ED Course/Re-evaluation: In the emergency department I discussed possible etiologies with the patient and mother. At this time I do not feel she needs blood tests or imaging. I discussed this and answered their questions. The patient was given warnings prior to leaving. She will return with worsening symptoms. Differential Diagnosis: My differential includes but is not limited to surgical complication, abscess, cellulitis, perforation, hemorrhage, urinary tract infection, pharyngitis, mono , lymphadenopathy Departure - Departure Disposition: Home, Routine, Self-Care Clinical Impression: Sore throat Abdominal pain Qualifiers: Abdominal location: generalized Qualified Code(s): R10.84 - Generalized abdominal pain Condition: Good Instructions: Acute Abdominal Pain (ED) Additional Instructions: Return with increasing abdominal pain, vomiting, fever, worsening sore throat or any other concerns. Continue to ambulate around the house Referrals: Asher Sal MD [Medical Doctor] - 3-4 days, if not improved
== END 2018-06-24 07:23 | disposition home or self-care (01) ==
DX: R10.84 Generalized abdominal pain (principal); R07.0 Pain in throat; Z98.890 Other specified postprocedural states